=== PATIENT | male | born 1955 | race Caucasian/White ===

== ENCOUNTER 2017-05-02 15:39 | Emergency (ER) | payer MEDICAID ==
[~2017-05-02] VITALS: Ht 175.3 cm; Wt 111.1 kg
--- NOTE | 2017-05-02 15:39 | NUR ---
BIB BLS from [facility], Patient to ER bed 02 to gown for evaluation. Side rails up.
[2017-05-02 15:42] VITALS: BP_SYST 107
--- NOTE | 2017-05-02 15:42 | NUR ---
Pt c/o abd distention d/t acities, denies pain. Last paracentiesis a few months ago, 1st time. Denies difficulty breathing. Increased abdomen in the past few days. Denies n/v/d. Denies chest pain.
--- NOTE | 2017-05-02 15:45 | NUR ---
Dr. Mcfarland at bedside for evaluation
--- NOTE | 2017-05-02 15:55 | NUR ---
Dr. Mcfarland at bedside for paracentesis using ultra sound guidance. Consent signed. Pt verbalized understanding
[2017-05-02] MEDS ORDERED: ASCO500T20 PO (15:59)
[2017-05-02] MEDS ORDERED: ACET325T53 PO (15:59)
[2017-05-02] MEDS ORDERED: EPOE40002 IJ (15:59)
[2017-05-02] MEDS ORDERED: VITA1CAP PO (15:59)
[2017-05-02] MEDS ORDERED: EPOE1VIA13 SUBCUT (15:59)
[2017-05-02] MEDS ORDERED: MENT113O5 TP (15:59)
[2017-05-02] MEDS ORDERED: GABA-529 PO (16:04)
[2017-05-02] MEDS ORDERED: LACT10SO66 PO (16:04)
[2017-05-02] MEDS ORDERED: FOLI-43 PO (16:04)
[2017-05-02] MEDS ORDERED: FLA250 PO (16:04)
[2017-05-02] MEDS ORDERED: HYDR-4100 PO (16:04)
[2017-05-02] MEDS ORDERED: HYDR-1189 PO (16:04)
[2017-05-02] MEDS ORDERED: LOPE2CAP PO (16:04)
[2017-05-02] MEDS ORDERED: PRO40 PO (16:04)
--- NOTE | 2017-05-02 16:10 | NUR ---
Pt BP 90/58. MD at bedside aware. Pt denies dizziness, denies chest pain, no acute distress.
--- NOTE | 2017-05-02 16:58 | NUR ---
IVF infusing with no s/s of infiltration at this time. Will cont to monitor
[2017-05-02] MEDS ORDERED: NS 500 ML IV ONE (17:00)
--- NOTE | 2017-05-02 17:10 | NUR ---
Paracentesis complete. Pt put out 5L cloudy yellow fluid, tolerated well.
--- NOTE | 2017-05-02 17:20 | NUR ---
4x4 gauze placed over incision site, bleeding controlled. Pt states that he feels better, no acute distress.
--- NOTE | 2017-05-02 17:57 | NUR ---
Marciano Anderson here to transfer pt back to [facility]. Pt is non ambulatory d/t chronic medical condition. Report given to EMT's and [facility] nurse Caitie. VSS, no distress. IV d/c'd with catheter intact, dressing placed, no bleeding. Patient given written and verbal discharge instructions and verbalizes understanding. ER MD discussed with patient the results and treatment provided. Patient in stable condition. ID arm band removed. No Rx of given. Patient educated on pain management and to follow up with PMD. Pain Scale 0/10. Opportunity for questions provided and answered.
[2017-05-02 18:01] VITALS: BP_SYST 106
== END 2017-05-02 18:01 | disposition home or self-care (01) ==
LOC: SED 15:39
DX: R18.8 Other ascites (principal); K72.90 Hepatic failure, unspecified without coma
CPT/HCPCS: 49083; 99285; J7040

== ENCOUNTER 2017-06-06 14:01 | Emergency (ER) | payer MEDICAID ==
[~2017-06-06] VITALS: Ht 175.3 cm; Wt 108.9 kg
[2017-06-06 14:01] VITALS: BP_SYST 93
[~2017-06-06 14:01] MED LIST: ACET325T53 PO; AMIN30LI2 PO; ASCO500T20 PO; EPOE1VIA13 SUBCUT; FERR-57 PO; FOLI-43 PO; FOLI0.8T2 PO; GABA-529 PO; HYDR-1189 PO; HYDR-4100 PO; IPRA3AMP9 INH; LACT10SO66 PO; LOPE2CAP PO; MENT113O5 TP; PHO667 PO; PRO40 PO; VITA1TAB25 PO
[2017-06-06 14:44] LABS: HEMATOCRIT 23.3 % (36-54); HEMOGLOBIN 7.3 g/dL (14.0-18.0); MEAN CORPUSCULAR HEMOGLOBIN 30 pg (27-31); MEAN CORPUSCULAR HGB CONC 31 % (32-36); MEAN CORPUSCULAR VOLUME 95 fL (79.0-98.0); RED BLOOD CELL COUNT(AUTO) 2.46 MIL/uL (4.2-6.2); RED CELL DISTRIBUTION WIDTH 16.7 % (9.0-15.0)
[2017-06-06 14:47] LABS: PLATELET COUNT (AUTO) 45 K/uL (130-430)
[2017-06-06 14:48] LABS: WHITE BLOOD COUNT (AUTO) 10.4 K/uL (4.8-10.8)
[2017-06-06 15:06] LABS: BAND % (MANUAL) 4 % (0-6)
[2017-06-06 15:07] LABS: ATYPICAL LYMPHOCYTES % 0 % (0-0); BASOPHILS % (MANUAL) 0 % (0-2); EOSINOPHILS % (MANUAL) 5 % (0-7); LYMPHOCYTES % (MANUAL) 7 % (20-46); METAMYELOCYTES % 0 % (0-0); MONOCYTES % (MANUAL) 9 % (0-11)
[2017-06-06] MEDS ORDERED: NACL 0.9% 1,000 ML IV ONE (15:30)
[2017-06-06 16:32] LABS: CALCIUM 7.1 mg/dL (8.4-11.0)
[2017-06-06 16:37] LABS: ALBUMIN 0.8 g/dL (3.4-4.8); TOTAL BILIRUBIN 0.6 mg/dL (0.0-1.0)
[2017-06-06 16:46] LABS: POTASSIUM 2.9 mmol/L (3.5-5.1)
[2017-06-06] MEDS ORDERED: POTASSIUM CHLORIDE 20 MEQ TAB.PRT.SR PO ONE (17:00)
[2017-06-06 17:05] VITALS: BP_SYST 96
== END 2017-06-06 17:05 | disposition home or self-care (01) ==
LOC: SED 14:01
DX: K72.90 Hepatic failure, unspecified without coma (principal); K74.60 Unspecified cirrhosis of liver; E87.6 Hypokalemia; D64.9 Anemia, unspecified; J44.9 Chronic obstructive pulmonary disease, unspecified; R18.8 Other ascites; Z79.899 Other long term (current) drug therapy
CPT/HCPCS: 36415; 80053; 82140; 83690; 85007; 85027; 96360; 99284; J7030